=== PATIENT | female | born 1960 | race Caucasian/White ===

== ENCOUNTER → 2017-01-08 | Outpatient (CLI) | payer OTHER ==
[~2017-01-08] MED LIST: METO-429 PO; POTA20LI5 PO
[2017-01-08 11:13] LABS: LYMPHOCYTES,SYNOVIAL FLUID 46; NEUTROPHILS,SYNOVIAL FLUID 11 % (0-25)
[2017-01-08 11:15] LABS: SYNOVIAL FLUID CLARITY Cloudy; SYNOVIAL FLUID COLOR Yellow; SYNOVIAL FLUID TYPE Left Knee
[2017-01-08 11:17] LABS: SYNOVIAL FLUID WBC 1018 /cmm (0-150)
== END | disposition home or self-care (01) ==
LOC: LAB 07:15
PROVIDERS: ATTEND Orthopaedic Surgery
DX: M25.569 Pain in unspecified knee (principal)
CPT/HCPCS: 87070; 87102; 87116; 89051

== ENCOUNTER → 2017-02-07 | Outpatient (CLI) | payer OTHER ==
--- NOTE | 2017-02-07 14:49 | RADRPT ---
PROCEDURE: Nuclear medicine triple phase bone scan CLINICAL INDICATION: Left knee pain. Status post bilateral total knee arthroplasty. Evaluate for infection or loosening. TECHNIQUE: 25.0 mCi of technetium-99m MDP was administered intravenously. Planar imaging of the b ilateral knees was performed in the anterior and posterior views. Triple phase imaging was performe d during the vascular flow phase, blood pool phase, and the delayed phase of enhancement. Spot imag es were obtained as well. Images were reviewed on the high resolution PACS workstation. COMPARISON: Left knee x-ray dated 06/05/2016 FINDINGS: There is increased vascular flow to the left kidney compared to the right knee. There is increased blood pool phase activity around the left knee compared to the right knee. There is moderate significant increased activity around the left knee when compared to the right kne e. Bilateral knee prostheses are identified. IMPRESSION: 1. Increased vascular flow activity, blood pool phase activity, and delayed phase activity around t he left knee, significant in degree and asymmetrically worse compared to the right knee. Findings d o raise the possibility of potential left knee prosthetic loosening. RPTAT: HMJB .Dawson Wright MD, MD Date Time Electronically viewed and signed by .Dawson Wright MD, MD on 02/07/2017 14:49 .B/
== END | disposition home or self-care (01) ==
LOC: NUC 08:51
PROVIDERS: ATTEND Orthopaedic Surgery
DX: M25.562 Pain in left knee (principal); Z96.653 Presence of artificial knee joint, bilateral
CPT/HCPCS: 78315; A9503